=== PATIENT | male | born 1930 | race Two or more races ===

== ENCOUNTER 2017-06-07 16:19 | Inpatient (IN) | payer MEDICARE, OTHER ==
[~2017-06-07] VITALS: Ht 160 cm; Wt 43.6 kg
[2017-06-07] MEDS ORDERED: MORPHINE SULFATE INJ 2 MG/ML DISP.SYRIN IV ONE (17:00)
[2017-06-07] MEDS ORDERED: ONDANSETRON HCL/PF - ER 4 MG/2 ML VIAL IV ONE (17:00)
[2017-06-07] MEDS ORDERED: ONDANSETRON HCL/PF 4 MG/2 ML VIAL ONE (17:03)
[2017-06-07 17:04] LABS: BASOPHILS % (AUTO) 0.3 % (0.0-2.0); EOSINOPHILS # (AUTO) 0.4 /CMM (0.0-0.7); EOSINOPHILS % (AUTO) 8.8 % (0.0-6.0); HEMATOCRIT 40 % (39-51); HEMOGLOBIN 13.1 g/dL (13.5-17.5); LYMPHOCYTES # (AUTO) 0.9 /CMM (0.8-4.8); LYMPHOCYTES % (AUTO) 18.5 % (20.0-44.0); MEAN CORPUSCULAR HEMOGLOBIN 30 PG (26.0-33.0); MEAN CORPUSCULAR HGB CONC 33 g/dl (31.0-36.0); MEAN CORPUSCULAR VOLUME 91 fL (80-96); MONOCYTES # (AUTO) 0.3 /CMM (0.1-1.30); MONOCYTES % (AUTO) 7.2 % (2.0-12.0); NEUTROPHILS # (AUTO) 3.2 /CMM (1.8-8.9); NEUTROPHILS % (AUTO) 65.2 % (43.0-81.0); PLATELET COUNT (AUTO) 188 /CMM (150-450); RED BLOOD CELL COUNT(AUTO) 4.33 MIL/uL (4.5-6.0); WHITE BLOOD COUNT (AUTO) 4.8 K/uL (4.3-11.0)
[2017-06-07] MEDS ORDERED: MORPHINE SULFATE INJ 2 MG/ML DISP.SYRIN ONE (17:04)
[2017-06-07 17:19] LABS: INR 1.03 (0.87-1.13); PROTHROMBIN TIME 10.7 SECS (9.5-12.7)
[2017-06-07 17:41] LABS: CALCIUM, SERUM 8.3 mg/dL (8.5-10.1); CARBON DIOXIDE 25 mmol/L (21-32); CHLORIDE 98 mmol/L (98-107); CREATININE 0.9 mg/dL (0.6-1.3); GLUCOSE 173 mg/dL (74-106); POTASSIUM 4.5 mmol/L (3.5-5.1); SODIUM SERUM 132 mmol/L (136-145); UREA NITROGEN, BLOOD 13 mg/dL (7-18)
[2017-06-07] MEDS ORDERED: FURO20TA4 PO (18:52)
[2017-06-07] MEDS ORDERED: SPIR25TA4 PO (18:52)
[2017-06-07] MEDS ORDERED: ASPI81TA2 PO (18:52)
[2017-06-07] MEDS ORDERED: LISI2.5T2 PO (18:52)
[2017-06-07] MEDS ORDERED: CARV3.122 PO (18:52)
[2017-06-07] MEDS ORDERED: MAGNESIUM HYDROXIDE 30 ML UDC PO PRN (20:00)
[2017-06-07] MEDS ORDERED: Z GUARD REMEDY 2 OZ OINT TP PRN (20:00)
[2017-06-07] MEDS ORDERED: ZOLPIDEM TARTRATE 5 MG TABLET PO PRN (20:00)
[2017-06-07] MEDS ORDERED: MAG HYDROX/AL HYDROX/SIMETH 30 ML UDC PO PRN (20:00)
[2017-06-07] MEDS ORDERED: MORPHINE SULFATE INJ 2 MG/ML DISP.SYRIN IV PRN (20:00)
[2017-06-07] MEDS ORDERED: ONDANSETRON HCL/PF 4 MG/2 ML VIAL IVP PRN (20:00)
[2017-06-07] MEDS ORDERED: HYDROCODONE/APAP 5/325MG 1 EACH TABLET PO PRN (20:00)
[2017-06-07 20:30] VITALS: BP_SYST 121; BP_SYST 131; BP_DIAS 80
[2017-06-07] MEDS ORDERED: ALBUTEROL FS 2.5 MG/3 ML VIAL.NEB ONE (23:09)
[2017-06-07] MEDS: ALBUTEROL FS 2.5 MG/3 ML VIAL.NEB NEB SCH (23:15)
[2017-06-08] VITALS (12 sets, daily range): BP systolic 90–173; BP diastolic 48–80
[2017-06-08] MEDS: ALBUTEROL FS 2.5 MG/3 ML VIAL.NEB NEB SCH ×7 (02:59→23:17)
[2017-06-08 06:50] LABS: BASOPHILS % (AUTO) 0.1 % (0.0-2.0); HEMATOCRIT 38 % (39-51); LYMPHOCYTES # (AUTO) 0.9 /CMM (0.8-4.8); LYMPHOCYTES % (AUTO) 11.3 % (20.0-44.0); MEAN CORPUSCULAR HEMOGLOBIN 31 PG (26.0-33.0); MEAN CORPUSCULAR HGB CONC 34 g/dl (31.0-36.0); MEAN CORPUSCULAR VOLUME 92 fL (80-96); MONOCYTES # (AUTO) 0.5 /CMM (0.1-1.30); MONOCYTES % (AUTO) 6.7 % (2.0-12.0); NEUTROPHILS # (AUTO) 6.2 /CMM (1.8-8.9); NEUTROPHILS % (AUTO) 81.9 % (43.0-81.0); PLATELET COUNT (AUTO) 152 /CMM (150-450); RDW COEFFICIENT OF VARIATION 15.3 (11.5-15.0); RED BLOOD CELL COUNT(AUTO) 4.19 MIL/uL (4.5-6.0); WHITE BLOOD COUNT (AUTO) 7.6 K/uL (4.3-11.0)
[2017-06-08 07:36] LABS: ALBUMIN 3.1 g/dL (3.4-5.0); CALCIUM, SERUM 8.4 mg/dL (8.5-10.1); CARBON DIOXIDE 27 mmol/L (21-32); CHLORIDE 99 mmol/L (98-107); CREATININE 0.9 mg/dL (0.6-1.3); GLUCOSE 128 mg/dL (74-106); MAGNESIUM 1.7 mg/dL (1.8-2.4); PHOSPHORUS 3.9 mg/dL (2.5-4.9); POTASSIUM 4.5 mmol/L (3.5-5.1); SODIUM SERUM 133 mmol/L (136-145); UREA NITROGEN, BLOOD 17 mg/dL (7-18)
[2017-06-08] MEDS ORDERED: ALBUTEROL FS 2.5 MG/3 ML VIAL.NEB ONE ×2 (07:42→17:35)
[2017-06-08 07:44] LABS: CHOLESTEROL 123 mg/dL (<200); HDL CHOLESTEROL 60 mg/dL (40-60); LDL 56 mg/dL (0-99); TRIGLYCERIDES 51 mg/dL (30-150)
[2017-06-08] MEDS: SPIRONOLACTONE 25 MG TABLET PO SCH (09:00)
[2017-06-08] MEDS: CARVEDILOL 3.125 MG TABLET PO SCH ×3 (09:00→18:31)
[2017-06-08] MEDS: ASPIRIN 81 MG TAB.CHEW PO SCH (09:00)
[2017-06-08] MEDS: LISINOPRIL (5MG) 5 MG TABLET PO SCH ×2 (09:00→11:05)
[2017-06-08] MEDS: FUROSEMIDE 20 MG TABLET PO SCH ×2 (09:00→11:00)
[2017-06-08] MEDS: Magnesium 1GM/D5W 100ML PREMIX 100 ML IV SCH ×2 (12:56→14:07)
[2017-06-08] MEDS ORDERED: FUROSEMIDE 20 MG/2 ML VIAL IV ONE (13:00)
[2017-06-08] MEDS ORDERED: BACITRACIN 50000 UNITS/VIAL ONE (15:08)
[2017-06-08] MEDS ORDERED: FENTANYL PF 100MCG/2ML AMPUL ONE (16:24)
[2017-06-08] MEDS ORDERED: MEPERIDINE HCL/PF 50 MG/ML DISP.SYRIN ONE (16:24)
[2017-06-08] MEDS ORDERED: MIDAZOLAM HCL 2 MG/2ML VIAL ONE (16:25)
[2017-06-08] MEDS ORDERED: ANESTHESIA TRAY IN PYXIS 1 EA TRAY MC ONE (17:54)
[2017-06-08] MEDS ORDERED: HYDROMORPHONE 1 MG/1 ML DISP.SYRIN IV PRN (18:00)
[2017-06-08] MEDS ORDERED: oxyCODONE/APAP (5/325 MG) 1 UDTAB TABLET PO PRN ×2 (18:00)
[2017-06-08] MEDS: IV LR 1000 ML 1,000 ML IV PRN (21:38)
[2017-06-08] MEDS: LORAZEPAM INJ 2 MG/ML VIAL IV PRN (22:10)
[2017-06-09] VITALS (15 sets, daily range): BP systolic 84–126; BP diastolic 39–78
[2017-06-09] MEDS: ALBUTEROL FS 2.5 MG/3 ML VIAL.NEB NEB SCH ×6 (03:42→23:27)
[2017-06-09 05:04] LABS: CALCIUM, SERUM 7.8 mg/dL (8.5-10.1); CARBON DIOXIDE 29 mmol/L (21-32); CHLORIDE 98 mmol/L (98-107); CREATININE 1.1 mg/dL (0.6-1.3); GLUCOSE 151 mg/dL (74-106); MAGNESIUM 1.9 mg/dL (1.8-2.4); POTASSIUM 4.1 mmol/L (3.5-5.1); SODIUM SERUM 136 mmol/L (136-145); UREA NITROGEN, BLOOD 20 mg/dL (7-18)
[2017-06-09] MEDS: IV LR 1000 ML 1,000 ML IV PRN ×2 (07:10→21:14)
[2017-06-09] MEDS ORDERED: FUROSEMIDE 20 MG TABLET PO SCH (09:00)
[2017-06-09] MEDS: FUROSEMIDE 40 MG TABLET PO SCH (09:34)
[2017-06-09] MEDS: SPIRONOLACTONE 25 MG TABLET PO SCH ×2 (09:34→09:48)
[2017-06-09] MEDS: CARVEDILOL 3.125 MG TABLET PO SCH ×2 (09:35→16:34)
[2017-06-09] MEDS: ASPIRIN 81 MG TAB.CHEW PO SCH (09:35)
[2017-06-09] MEDS: LISINOPRIL (5MG) 5 MG TABLET PO SCH (09:35)
[2017-06-09] MEDS: RIVAROXABAN 10 MG TABLET PO SCH (16:33)
[2017-06-10] VITALS (8 sets, daily range): BP systolic 102–130; BP diastolic 58–67
[2017-06-10] MEDS: LORAZEPAM INJ 2 MG/ML VIAL IV PRN (02:25)
[2017-06-10] MEDS: ALBUTEROL FS 2.5 MG/3 ML VIAL.NEB NEB SCH ×6 (03:30→23:56)
[2017-06-10] MEDS: FUROSEMIDE 40 MG TABLET PO SCH (08:33)
[2017-06-10] MEDS: ASPIRIN 81 MG TAB.CHEW PO SCH (08:33)
[2017-06-10] MEDS: CARVEDILOL 3.125 MG TABLET PO SCH ×2 (08:34→17:00)
[2017-06-10] MEDS: LISINOPRIL (5MG) 5 MG TABLET PO SCH (08:34)
[2017-06-10] MEDS: IV LR 1000 ML 1,000 ML IV PRN ×2 (08:40→21:34)
[2017-06-10] MEDS ORDERED: TRAV5DRO EACHEYE (09:56)
[2017-06-10] MEDS ORDERED: PROP10DR2 EACHEYE (09:58)
[2017-06-10] MEDS ORDERED: POLYETHYLENE GLYCOL 3350 17 GM POWD.PACK PO PRN (11:30)
[2017-06-10 12:30] LABS: BASOPHILS % (AUTO) 0.2 % (0.0-2.0); EOSINOPHILS % (AUTO) 0.1 % (0.0-6.0); HEMATOCRIT 24 % (39-51); HEMOGLOBIN 8.2 g/dL (13.5-17.5); LYMPHOCYTES # (AUTO) 0.9 /CMM (0.8-4.8); LYMPHOCYTES % (AUTO) 12.5 % (20.0-44.0); MEAN CORPUSCULAR HEMOGLOBIN 31 PG (26.0-33.0); MEAN CORPUSCULAR HGB CONC 34 g/dl (31.0-36.0); MEAN CORPUSCULAR VOLUME 91 fL (80-96); MONOCYTES # (AUTO) 0.8 /CMM (0.1-1.30); MONOCYTES % (AUTO) 10.6 % (2.0-12.0); NEUTROPHILS # (AUTO) 5.7 /CMM (1.8-8.9); NEUTROPHILS % (AUTO) 76.6 % (43.0-81.0); PLATELET COUNT (AUTO) 107 /CMM (150-450); RED BLOOD CELL COUNT(AUTO) 2.62 MIL/uL (4.5-6.0); WHITE BLOOD COUNT (AUTO) 7.5 K/uL (4.3-11.0)
[2017-06-10] MEDS: BISACODYL SUPP (10 MG) 10 MG/SUPP.RECT SUPP.RECT RC PRN (12:37)
[2017-06-10] MEDS ORDERED: HYDROMORPHONE 1 MG/1 ML DISP.SYRIN IV PRN (16:00)
[2017-06-10] MEDS: RIVAROXABAN 10 MG TABLET PO SCH (17:00)
[2017-06-10] MEDS ORDERED: RIVAROXABAN 10 MG TABLET PO ONE (20:00)
[2017-06-11] VITALS (8 sets, daily range): BP systolic 98–123; BP diastolic 56–74
[2017-06-11] MEDS: ALBUTEROL FS 2.5 MG/3 ML VIAL.NEB NEB SCH ×6 (03:54→22:55)
[2017-06-11] MEDS: LISINOPRIL (5MG) 5 MG TABLET PO SCH (09:06)
[2017-06-11] MEDS: ASPIRIN 81 MG TAB.CHEW PO SCH (09:06)
[2017-06-11] MEDS: FUROSEMIDE 40 MG TABLET PO SCH (09:06)
[2017-06-11] MEDS: CARVEDILOL 3.125 MG TABLET PO SCH ×2 (09:06→17:00)
[2017-06-11] MEDS: SPIRONOLACTONE 25 MG TABLET PO SCH (09:07)
[2017-06-11] MEDS: IV LR 1000 ML 1,000 ML IV PRN (09:26)
[2017-06-11 10:17] LABS: EOSINOPHILS % (AUTO) 0.5 % (0.0-6.0); HEMATOCRIT 24 % (39-51); HEMOGLOBIN 8.1 g/dL (13.5-17.5); LYMPHOCYTES # (AUTO) 0.9 /CMM (0.8-4.8); MEAN CORPUSCULAR HEMOGLOBIN 31 PG (26.0-33.0); MEAN CORPUSCULAR HGB CONC 34 g/dl (31.0-36.0); MEAN CORPUSCULAR VOLUME 91 fL (80-96); MONOCYTES # (AUTO) 0.6 /CMM (0.1-1.30); MONOCYTES % (AUTO) 6.6 % (2.0-12.0); NEUTROPHILS # (AUTO) 6.8 /CMM (1.8-8.9); NEUTROPHILS % (AUTO) 81.9 % (43.0-81.0); PLATELET COUNT (AUTO) 154 /CMM (150-450); RDW COEFFICIENT OF VARIATION 15.7 (11.5-15.0); WHITE BLOOD COUNT (AUTO) 8.3 K/uL (4.3-11.0)
[2017-06-11] MEDS: RIVAROXABAN 10 MG TABLET PO SCH (17:51)
[2017-06-12] MEDS: IV LR 1000 ML 1,000 ML IV PRN (01:55)
[2017-06-12] MEDS: ALBUTEROL FS 2.5 MG/3 ML VIAL.NEB NEB SCH ×6 (03:19→22:52)
[2017-06-12 08:00] VITALS: BP 133/68
[2017-06-12] MEDS ORDERED: CARBOXYMETHYLCELLULOSE SODIUM 0.4 ML DROPERETTE EACHEYE PRN (08:30)
[2017-06-12] MEDS: ASPIRIN 81 MG TAB.CHEW PO SCH (08:42)
[2017-06-12] MEDS: LISINOPRIL (5MG) 5 MG TABLET PO SCH (08:43)
[2017-06-12] MEDS: CARVEDILOL 3.125 MG TABLET PO SCH ×2 (08:43→17:15)
[2017-06-12] MEDS ORDERED: FUROSEMIDE 40 MG/4 ML VIAL IV ONE (09:30)
[2017-06-12 11:27] LABS: BASOPHILS % (AUTO) 0.1 % (0.0-2.0); EOSINOPHILS % (AUTO) 0.4 % (0.0-6.0); HEMATOCRIT 29 % (39-51); LYMPHOCYTES # (AUTO) 0.7 /CMM (0.8-4.8); LYMPHOCYTES % (AUTO) 8.8 % (20.0-44.0); MEAN CORPUSCULAR HEMOGLOBIN 31 PG (26.0-33.0); MEAN CORPUSCULAR HGB CONC 34 g/dl (31.0-36.0); MEAN CORPUSCULAR VOLUME 90 fL (80-96); MONOCYTES # (AUTO) 0.6 /CMM (0.1-1.30); MONOCYTES % (AUTO) 7.1 % (2.0-12.0); NEUTROPHILS % (AUTO) 83.6 % (43.0-81.0); PLATELET COUNT (AUTO) 188 /CMM (150-450); RDW COEFFICIENT OF VARIATION 16.3 (11.5-15.0); RED BLOOD CELL COUNT(AUTO) 3.27 MIL/uL (4.5-6.0); WHITE BLOOD COUNT (AUTO) 8.4 K/uL (4.3-11.0)
[2017-06-12 16:00] VITALS: BP 120/69
[2017-06-12] MEDS ORDERED: FUROSEMIDE 20 MG/2 ML VIAL IV ONE (16:00)
[2017-06-12] MEDS: RIVAROXABAN 10 MG TABLET PO SCH (17:14)
[2017-06-12 19:31] VITALS: BP 95/52
[2017-06-12 20:00] VITALS: BP 95/52
[2017-06-12] MEDS: LATANOPROST EYE DROP 0.005% 2.5 ML BOTTLE EACHEYE SCH (22:09)
[2017-06-13] MEDS: ALBUTEROL FS 2.5 MG/3 ML VIAL.NEB NEB SCH ×6 (02:46→23:06)
[2017-06-13 08:00] VITALS: BP 111/62
[2017-06-13] MEDS: FUROSEMIDE 40 MG/4 ML VIAL IV SCH (08:05)
[2017-06-13] MEDS: ASPIRIN 81 MG TAB.CHEW PO SCH (08:05)
[2017-06-13] MEDS: CARVEDILOL 3.125 MG TABLET PO SCH ×2 (08:05→16:24)
[2017-06-13] MEDS: LISINOPRIL (5MG) 5 MG TABLET PO SCH (08:51)
[2017-06-13 16:00] VITALS: BP 99/46
[2017-06-13] MEDS: RIVAROXABAN 10 MG TABLET PO SCH (16:21)
[2017-06-13 17:45] VITALS: BP 107/52
[2017-06-13 20:00] VITALS: BP 100/61
[2017-06-13] MEDS: LATANOPROST EYE DROP 0.005% 2.5 ML BOTTLE EACHEYE SCH (21:29)
[2017-06-14] MEDS: ALBUTEROL FS 2.5 MG/3 ML VIAL.NEB NEB SCH ×4 (03:30→14:53)
[2017-06-14 08:00] VITALS: BP 115/66
[2017-06-14] MEDS: FUROSEMIDE 40 MG/4 ML VIAL IV SCH (08:21)
[2017-06-14] MEDS: ASPIRIN 81 MG TAB.CHEW PO SCH (08:22)
[2017-06-14] MEDS: LISINOPRIL (5MG) 5 MG TABLET PO SCH (08:23)
[2017-06-14] MEDS: CARVEDILOL 3.125 MG TABLET PO SCH ×2 (08:23→16:25)
[2017-06-14] MEDS ORDERED: FUROSEMIDE 40 MG/4 ML VIAL IV SCH (09:00)
[2017-06-14] MEDS: BISACODYL SUPP (10 MG) 10 MG/SUPP.RECT SUPP.RECT RC PRN (09:45)
[2017-06-14 10:00] LABS: ALANINE AMINOTRANSFERASE 101 U/L (12-78); ALKALINE PHOSPHATASE 68 U/L (46-116); ASPARTATE AMINOTRANSFERASE 80 U/L (15-37); BILIRUBIN,TOTAL 3.7 mg/dL (0.2-1.0); CALCIUM, SERUM 8.6 mg/dL (8.5-10.1); CARBON DIOXIDE 30 mmol/L (21-32); CHLORIDE 93 mmol/L (98-107); CREATININE 0.9 mg/dL (0.6-1.3); GLUCOSE 225 mg/dL (74-106); POTASSIUM 3.9 mmol/L (3.5-5.1); SODIUM SERUM 131 mmol/L (136-145); UREA NITROGEN, BLOOD 36 mg/dL (7-18)
[2017-06-14] MEDS: ACETAMINOPHEN 325 MG TABLET PO PRN ×2 (11:00→16:25)
[2017-06-14 16:00] VITALS: BP 109/64
[2017-06-14] MEDS: RIVAROXABAN 10 MG TABLET PO SCH (16:18)
[2017-06-14 16:25] VITALS: BP 106/64
[2017-06-15] MEDS ORDERED: FUROSEMIDE 40 MG/4 ML VIAL IV SCH (09:00)
== END 2017-06-14 17:06 | DRG 480 ==
LOC: ER 16:21 → MED 20:00 → ICU 06-08 17:45 → TELE 06-09 10:44 → MED 06-10 16:58
PROVIDERS: ADMIT Family Medicine; ATTEND Family Medicine
PROC: BW1CYZZ Fluoroscopy of Lower Extremity using Other Contrast (ICD-10-PCS; 2017-06-08)
PROC: 0QS704Z Reposition Left Upper Femur with Internal Fixation Device, Open Approach (ICD-10-PCS; principal; 2017-06-08 15:45)
DX: S72.142A Displaced intertrochanteric fracture of left femur, initial encounter for closed fracture (principal); I50.23 Acute on chronic systolic (congestive) heart failure; J81.1 Chronic pulmonary edema; E88.09 Other disorders of plasma-protein metabolism, not elsewhere classified; I27.2 Other secondary pulmonary hypertension; E87.1 Hypo-osmolality and hyponatremia; E83.42 Hypomagnesemia; Z95.1 Presence of aortocoronary bypass graft; D63.8 Anemia in other chronic diseases classified elsewhere; E83.51 Hypocalcemia; Z79.82 Long term (current) use of aspirin; W01.0XXA Fall on same level from slipping, tripping and stumbling without subsequent striking against object, initial encounter; Z87.891 Personal history of nicotine dependence; K59.00 Constipation, unspecified; I25.5 Ischemic cardiomyopathy; Z95.0 Presence of cardiac pacemaker; Z98.890 Other specified postprocedural states; I11.0 Hypertensive heart disease with heart failure; I25.10 Atherosclerotic heart disease of native coronary artery without angina pectoris; K59.03 Drug induced constipation; T40.2X5A Adverse effect of other opioids, initial encounter; T42.75XA Adverse effect of unspecified antiepileptic and sedative-hypnotic drugs, initial encounter; Y92.89 Other specified places as the place of occurrence of the external cause
CPT/HCPCS: 36415; 71010-TC; 73020; 73502; 80048-TC; 80053-TC; 80061-TC; 82040-TC; 83735-TC; 84100-TC; 85025-TC; 85730-TC; 86850-TC; 86921-TC; 87081-TC; 93307-TC; 94799-TC; 97001-TC; 97110-TC; 97112-TC; 97530-TC; A4216; A4349; A4606; A6209; A6402; C1713; J0690; J1170; J1940; J2060; J2175; J2250; J2370; J2405; J2704; J3010; J3475; J3490; J7050; J7120; P9016-BL; Z7610